=== PATIENT | male | born 1995 | race African-American/Black ===

== ENCOUNTER 2025-08-14 07:24 | Emergency (ER) | payer OTHER ==
[2025-08-14 07:48] VITALS: RESP 18; TEMP 98; BMI 30.9
[2025-08-14] MEDS ORDERED: ACETAMINOPHEN 325 MG TABLET (FP) ONE (08:02)
[2025-08-14] MEDS: ACETAMINOPHEN 500 MG TABLET (FP) PO ONE (08:05)
[2025-08-14] MEDS ORDERED: NIFEdipine E.R 60 MG TABLET PO ONE (10:43)
[2025-08-14 10:50] VITALS: BP 168/86; PULSE 79
[2025-08-14] MEDS: NIFEdipine E.R 60 MG TABLET PO ONE (10:50)
[2025-08-14 11:23] LABS: HCV DIAGNOSTIC IN-HOUSE W/RFLX NON-REACTIVE (NONREACTIVE); HIV INTERPRETATION NEGATIVE (NEGATIVE)
== END 2025-08-14 11:05 | disposition home or self-care (01) ==
LOC: JER 07:24
DX: S52.201A Unspecified fracture of shaft of right ulna, initial encounter for closed fracture (principal); F10.10 Alcohol abuse, uncomplicated; Y90.9 Presence of alcohol in blood, level not specified; F14.10 Cocaine abuse, uncomplicated
CPT/HCPCS: 36415; 73090-TC-RT-FY; 86803; 87389; 99284-25